=== PATIENT | female | born 1935 | race Caucasian/White ===

== ENCOUNTER 2019-07-14 07:14 | Day surgery (SDC) | payer OTHER, MEDICARE ==
[~2019-07-14] VITALS: Ht 165.1 cm; Wt 90.7 kg
--- NOTE | ~2019-07-14 | O ---
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 PROCEDURE: Excision of tumor of right lower lid with frozen section, control of margins, myocutaneous flap repair of defect with silicone lacrimal intubation and nasal surgical video endoscopy. SURGEON: Marco A Allen M.D. WATCH AND CLOCK REPAIR CLERK: None. ANESTHESIA: General. COMPLICATIONS: None. INDICATIONS FOR SURGERY: This pleasant 84-year-old woman has a pigmented nodular lesion in her medial right lower lid overlying her inferior canaliculus that appears to be a basal cell carcinoma. She presents today for excision of this lesion with repair of that defect along with cannulization of her lacrimal outflow tract. Informed consent was obtained to include but not limited to the potential risk for loss of vision, bleeding, infection, failure to improve the problem, and the potential need for further surgery or treatment including treatment or surgery for tearing. DESCRIPTION OF PROCEDURE: The patient was taken to the operating room where general anesthesia was administered. The right medial canthal area and the right lateral wall of the nose were then generously infiltrated with Xylocaine mixed with equal parts of 0.75% Marcaine with Wydase. The patient was subsequently prepped and draped in the usual sterile fashion. The right side of the nose was then packed with Afrin-soaked cottonoids. A fine tip skin marking pen was then utilized to outline the lesion including [facility] [address] [place] [address] OPERATIVE REPORT Name: SHAYNA ABBOTT Room #: 150-9 [facility].#: [id number] Admission: 07/14/19 Attend Phys: Marco A Allen MD Discharge: Date of : 35 Report #: [id number] 1-2 mm of normal appearing tissue. The lesion was directly overlying the inferior canaliculus over to the area of the common canaliculus. The incisions were then made with a 15 blade and the deeper dissection accomplished with a Nicolette scissor. The lesion was then oriented on a drawing for the waiting pathologist. The field was dried with monopolar cautery. The pathologist snap froze that tissue and found surprisingly that there was still additional tumor left laterally, which was an area that appeared to be widely clear. An additional lateral margin was then taken in this area and oriented for the pathologist. Hemostasis was re-achieved. The pathologist snap froze that tissue and found at this time the margin was clear. Attention was then turned to repair of the defect, which was larger than what it initially been anticipated. A myocutaneous flap was then developed superomedially and rotated inferolaterally. Hemostasis was then re-achieved. The flap was then secured with multiple interrupted 6-0 plain gut sutures maintaining the lid globe apposition. The superior and inferior puncta were then dilated with a punctum dilator. Decker tubes were then passed through the canaliculus system down the nasolacrimal duct into the inferior meatus. The cottonoids were removed from the nose and the nasal vault inspected with the video endoscope. A Decker hook was then used to secure the Decker tubes under the inferior turbinate. The tubes were then secured to themselves with 3 square throws. They were then secured to the lateral wall of the nose with a 5-0 Prolene suture. The wounds were then cleaned and dressed with erythromycin ophthalmic ointment. The patient was subsequently transported to the recovery area having tolerated the procedure well with no anesthetic or operative complications being noted. By: [id number] Marco A Allen MD /nt
[~2019-07-14 07:14] MED LIST: ASPIR 8181 MG PO; COREG25 M1 PO; COUMADIN 2 MG TA2 M1 PO; FUROSEMIDE 40 M40 M1 PO; IMDUR 30 MG TAB30 M1 PO; KLOR-CON 1010 MEQ PO; LOSARTAN POTASS50 MG PO; PRAVACHOL40 MG PO; SYNTHROID50 MCG PO
[2019-07-14 08:20] LABS: INR 1.1; PROTIME 11.7 Seconds (9.3-11.4)
[2019-07-14 08:30] VITALS: BP 149/64
--- NOTE | 2019-07-15 16:06 | PATH ---
[facility] [place] [address] PATHOLOGY RPT PROCEDURE Name: SHAYNA ABBOTT Room #: DEP [facility] M.R.#: [id number] Admission: 07/14/19 Date of : 35 Discharge: 07/14/19 Report #: [id number] Path Case #: [id number] [facility] Accession Number: [id number] . 01 Material submitted: . PART A: canthus - LESION RIGHT MEDIAL CANTHUS/LOWER LID - FS. Modifiers: right, medial, lower PART B: canthus - ADDITIONAL LATERAL MARGIN - FS. Modifiers: lateral . 02 Frozen section diagnosis: . FROZEN SECTION DIAGNOSIS: FSA1. Lesion right medial canthus/lower lid: - BASAL CELL CARCINOMA, PRESENT AT LATERAL MARGIN. . FSB1: Additional lateral margin: - Negative for carcinoma. . Findings relayed to Dr. Allen at the time of the procedure. . (YASMINEM:castro; 07/14/2019) . . FROZEN SECTION GROSS DESCRIPTION: A. Received fresh, labeled "lesion right medial canthus/lower lid" and consists of a roughly elliptical 0.7 x 0.4 x 0.3 cm piece of pink-ohara skin. Specimen orientation is provided on an underlying piece of cardboard. The specimen is inked as follows: Superior half - black, inferior half - blue, medial tip - red. The specimen is serially sectioned parallel to the superior/inferior axis into three pieces and all frozen on one john. . B. Received fresh, labeled "additional lateral margin" and consists of an irregular shaped piece of pink-ohara skin which measures 0.5 x 0.3 x 0.2 cm. The new lateral tip has been inked. The specimen is all frozen in FSB1. . (GARRETT:castro; 07/14/2019) . Frozen section performed at [facility], [address] [place] [address] , [place] [address]. NITISH/KEIKO . 02 Diagnosis: . A. Skin, "lesion right medial canthus/lower lid", excision: - BASAL CELL CARCINOMA, PRESENT AT LATERAL MARGIN; OTHER MARGINS NEGATIVE. . B. Skin, "additional lateral margin", excision: - No evidence of carcinoma. [address] [place] [address] PATHOLOGY RPT PROCEDURE Name: SHAYNA ABBOTT [id number] Admission: 07/14/19 Date of : 35 Discharge: 07/14/19 Report #: [id number] Path Case #: [id number] (GARRETT:castro; 07/15/2019) [facility]/07/15/2019 . 02 Electronically signed: . Abraham Roman MD, Pathologist NPI- [id number] . 03 Gross description: . PLEASE SEE FROZEN SECTION GROSS DESCRIPTION FOR A AND B. /MBR . 02 Pathologist provided ICD-10: C44.1122 . 02 CPT . 559748, 833859, 168184, 152028 Specimen Comment: A courtesy copy of this report has been sent to Specimen Comment: [phone], . Specimen Comment: Report sent to / DR KRAMER Specimen Comment: A duplicate report has been generated due to demographic updates. Performed at: [address] [id number] MD Nelson Caenla MD Phone: [phone] Performed at: [address] [id number] MD Jackie Cristobal MD Phone: [phone] Performed at: [address] [place] [id number] MD Nelson Canela MD Phone: [phone]
== END 2019-07-14 10:55 | disposition home or self-care (01) ==
LOC: OR 07:14 → TBA 07:15 → OR 07:46
PROVIDERS: Ophthalmology
DX: C44.1122 Basal cell carcinoma of skin of right lower eyelid, including canthus (principal); H04.551 Acquired stenosis of right nasolacrimal duct; I10 Essential (primary) hypertension; E78.5 Hyperlipidemia, unspecified; I73.9 Peripheral vascular disease, unspecified; I48.91 Unspecified atrial fibrillation; E03.9 Hypothyroidism, unspecified; Z85.828 Personal history of other malignant neoplasm of skin; Z86.73 Personal history of transient ischemic attack (TIA), and cerebral infarction without residual deficits; Z96.653 Presence of artificial knee joint, bilateral; Z90.710 Acquired absence of both cervix and uterus; Z95.0 Presence of cardiac pacemaker; Z98.890 Other specified postprocedural states; Z79.01 Long term (current) use of anticoagulants; Z98.41 Cataract extraction status, right eye; Z98.42 Cataract extraction status, left eye; Z79.899 Other long term (current) drug therapy; Z88.8 Allergy status to other drugs, medicaments and biological substances; Z79.82 Long term (current) use of aspirin
CPT/HCPCS: 50010; 50101; 50386; 50398; 51636; 51777; 56527; 56531

== ENCOUNTER 2021-02-14 07:51 | Day surgery (SDC) | payer OTHER, MEDICARE ==
[~2021-02-14] VITALS: Ht 165.1 cm; Wt 93.0 kg
--- NOTE | ~2021-02-14 | O ---
[facility] [place] [address] OPERATIVE REPORT Name: SHAYNA ABBOTT Room #: 150-9 [facility]..#: [id number] Admission: 02/14/21 Attend Phys: Marco A Allen MD Discharge: Date of : 35 Report #: [id number] THIS REPORT FOR: cc: DEIRDRE KRAMER Physician not on staff Marco A Allen MD ~ DATE OF SERVICE: 02/14/2021 PREOPERATIVE DIAGNOSIS: Tumor of left lower lid, medial canthus. POSTOPERATIVE DIAGNOSIS: Tumor of left lower lid, medial canthus. PROCEDURE: Excision of tumor of left lower lid, medial canthus with myocutaneous flap repair of defect. SURGEON: Marco A Allen MD. CLERICAL SUPPORT: None. ANESTHESIA: MAC. COMPLICATIONS: None. INDICATIONS FOR SURGERY: This pleasant 86-year-old woman has a nodular ulcerative mass in her left medial canthus extending down onto her left lower lid that appears to be a basal cell carcinoma. She presents today for excision of this lesion with frozen sections and subsequent reconstruction of that defect. Informed consent was obtained to include but not limited to the potential risk for loss of vision, bleeding, infection, failure to improve the problem, and the potential need for further surgery or treatment. DESCRIPTION OF PROCEDURE: The patient was taken to the operating room where 2% Xylocaine with epinephrine mixed with equal parts 0.75% Marcaine with Wydase was administered transcutaneously to the left medial canthus, the glabella, the medial left lower lid and the medial left upper lid. The patient was subsequently prepped and draped in the usual sterile fashion. A fine tip skin marking pen was then used to outline the lesion including approximately 2-3 mm of normal appearing tissue. The incisions were then made with a 15C blade and the excision accomplished deeper with a Nicolette scissor. The specimen was oriented on a drawing for the waiting pathologist. She snap froze that tissue and found that the margins appeared to be clear. A myocutaneous flap was then developed to correct that defect drawing tissue from the medial most left lower lid. The flap was then advanced and secured closing the relaxing incision and the primary incision both with multiple [facility] [address] [place] [address] OPERATIVE REPORT Name: SHAYNA ABBOTT Room #: 150-9 [facility].#: [id number] Admission: 02/14/21 Attend Phys: Marco A Allen MD Discharge: Date of : 35 Report #: [id number] interrupted 6-0 plain gut sutures. The wounds were then cleaned and dressed with erythromycin ophthalmic ointment. The patient subsequently transported to the recovery area having tolerated the procedures well with no anesthetic or operative complications being noted. Thank you very much. By: [id number] Marco A Allen MD /nt
[~2021-02-14 07:51] MED LIST changes: +ASPIRIN EC81 M1 PO; +FAMOTIDINE 20 M20 MG PO; +LIPITOR 40 MG T40 M1 PO; +SPIRONOLACTONE25 MG PO; +WARFARIN SODIUM2 MG PO; +WARFARIN SODIUM4 MG PO
[2021-02-14 10:13] LABS: INR 1.1; PROTIME 12.3 Seconds (9.3-11.4)
[2021-02-14 10:18] VITALS: BP 96/61
--- NOTE | 2021-02-15 17:07 | PATH ---
[facility] [address] [place] [address] PATHOLOGY RPT PROCEDURE Name: SHAYNA ABBOTT Room #: DEP [facility]..#: [id number] Admission: 02/14/21 Date of : 35 Discharge: 02/14/21 Report #: [id number] Path Case #: [id number] [facility] Accession Number: [id number] . 01 Material submitted: . eyelid - LEFT LOWER EYELID LESION - FROZEN SECTION. Modifiers: left, lower . 01 Clinical history: . LEFT MEDIAL CANTHAL LESION EXCISON LESION EYE . 02 Frozen section diagnosis: . FROZEN SECTION DIAGNOSIS (Jackie Cristobal MD) . FSA1, Skin, left lower eyelid, excision: - Margins free of invasive carcinoma on frozen section slides. . . These findings are discussed with Dr. Marco A Allen in OR6 and a written report is placed in the patient's chart. . Frozen section performed at [facility], [address] , [place] [address]. . . FROZEN SECTION GROSS DESCRIPTION Specimen is received fresh from the OR labeled with the patient's name, and "left lower eyelid lesion", consists of an oriented tiny ellipse of skin measuring 1.7 x 0.4 x 0.3 cm. The specimen is oriented as superior, lateral, inferior and medial. The superior to lateral margin is inked black, the lateral to inferior margin is inked orange, the inferior to medial margin is inked blue, and the medial to superior margin is inked green. At this point, the specimen is serially sectioned into three pieces and submitted for frozen section as FSA1, this is subsequently submitted for permanent sections as A1. (LCA:annelise; 02/14/2021) . . . IZV/QMS . 02 Diagnosis: Skin, left lower eyelid lesion, excision: - BASAL CELL CARCINOMA. - No definitive perineural invasion identified. - Margins of resection free of malignancy. (IUV:annelise; 02/15/2021) [address] [address] PATHOLOGY RPT PROCEDURE Name: SHAYNA ABBOTT [id number] Admission: 02/14/21 Date of : 35 Discharge: 02/14/21 Report #: [id number] Path Case #: [id number] QMS 02/15/2021 1108 Local . 02 Electronically signed: . Jackie Cristobal MD, Pathologist NPI- [id number] . 01 Gross description: . PLEASE SEE FROZEN SECTION GROSS DESCRIPTION. /QMS 02/14/2021 1532 Local . 02 Microscopic: . . . 02 Pathologist provided ICD-10: C44.1192 . 02 CPT . 729558, 483785 Specimen Comment: A courtesy copy of this report has been sent to [phone] Specimen Comment: [phone] Specimen Comment: Report sent to / DR KRAMER Performed at: [address], [place] [id number] MD Arsalan Kee MD Phone: [phone] Performed at: [address] [id number] MD Jackie Cristobal MD Phone: [phone]
== END 2021-02-14 12:15 | disposition home or self-care (01) ==
LOC: OR 07:51 → TBA 07:51 → OR 10:26
PROVIDERS: ATTEND Ophthalmology
DX: C44.1192 Basal cell carcinoma of skin of left lower eyelid, including canthus (principal); I11.0 Hypertensive heart disease with heart failure; I50.9 Heart failure, unspecified; E78.5 Hyperlipidemia, unspecified; I48.91 Unspecified atrial fibrillation; I73.9 Peripheral vascular disease, unspecified; E03.9 Hypothyroidism, unspecified; K21.9 Gastro-esophageal reflux disease without esophagitis; Z98.890 Other specified postprocedural states; Z79.899 Other long term (current) drug therapy; Z85.828 Personal history of other malignant neoplasm of skin; Z90.710 Acquired absence of both cervix and uterus; Z96.653 Presence of artificial knee joint, bilateral; Z86.73 Personal history of transient ischemic attack (TIA), and cerebral infarction without residual deficits; Z98.41 Cataract extraction status, right eye; Z98.42 Cataract extraction status, left eye; Z88.8 Allergy status to other drugs, medicaments and biological substances
CPT/HCPCS: 50010; 50101; 50386; 50398; 51636; 56531; 62110; 62850; 70005